=== PATIENT | male | born 1975 | race Two or more races ===

== ENCOUNTER → 2023-10-28 06:23 | Day surgery (SDC) | payer BC, SELFPAY | LOC: GI 06:23 | PROVIDERS: ATTENDING PHYSICIAN Internal Medicine Gastroenterology | DX: Z12.11 Encounter for screening for malignant neoplasm of colon (principal); K64.8 Other hemorrhoids; K22.70 Barrett's esophagus without dysplasia; K21.00 Gastro-esophageal reflux disease with esophagitis, without bleeding; K31.7 Polyp of stomach and duodenum; K31.89 Other diseases of stomach and duodenum; R12 Heartburn | CPT/HCPCS: 43239; G0121; 88305; 88342 ==

== ENCOUNTER → 2024-04-15 09:02 | Outpatient (REF) | payer BC, SELFPAY ==
[2024-04-15 10:25] LABS: Urine Albumin Negative (Neg - Trace); Urine Bilirubin Negative (Negative); Urine Character Clear (Clear); Urine Color Yellow; Urine Glucose Negative (Negative); Urine Ketone Negative (Negative); Urine Leukocyte Negative (Negative); Urine Nitrite Negative (Negative); Urine Occult Blood Negative (Negative); Urine Specific Gravity 1.005 (<1.030); Urine Urobilinogen Negative (Neg - 1+)
[2024-04-15 10:34] LABS: Erythrocyte Sed Rate 7 mm/hour (0-20)
[2024-04-15 12:06] LABS: ALT (SGPT) 25 U/L (0-50); AST (SGOT) 31 U/L (17-59); Albumin 5.1 g/dl (3.5-5.0); Alkaline Phosphatase 59 U/L (38-126); Blood Urea Nitrogen 14 mg/dl (9-20); Calcium 10.1 mg/dl (8.4-10.2); Carbon Dioxide 28 mmol/L (22-30); Chloride 100 mmol/L (98-107); Direct Bilirubin 0.3 mg/dl (0.0-0.4); Glucose 103 mg/dl (70-99); HDL Cholesterol 64 mg/dl; LDL Cholesterol, Calculated 161 mg/dl; Potassium 4.4 mmol/L (3.5-5.1); Sodium 136 mmol/L (135-145); Total Bilirubin 1.4 mg/dl (0.2-1.3); Total Cholesterol 239 mg/dl (50-199); Total Protein 7.9 g/dl (6.3-8.2); Triglyceride 70 mg/dl (10-149); Very Low Density Lipoprotein 14 mg/dl (0-30); eGFR > 60.00
[2024-04-15 12:07] LABS: Glycohemoglobin (HgbA1c) 5.5 % (4.0-5.6)
[2024-04-15 12:13] LABS: C-Reactive Protein < 5.00 mg/L (0.0-10.00)
[2024-04-15 12:46] LABS: PSA, Total - Screen 0.55 ng/ml (0.0-4.0); TSH 2.33 uIU/ml (0.47-4.68)
[2024-04-17 23:51] LABS: Insulin, Random 5 uIU/mL
[2024-04-18 05:32] LABS: % Free Testosterone 2.6 % (1.6-2.9); Free Testosterone 86 pg/mL (47-244); Sex Hormone Binding Globulin 14 nmol/L (17-56); Total Testosterone 333 ng/dL (300-890)
== END ==
LOC: REG 09:02
PROVIDERS: ATTENDING PHYSICIAN Internal Medicine Critical Care Medicine; FAMILY PHYSICIAN Internal Medicine
DX: I10 Essential (primary) hypertension (principal); R73.01 Impaired fasting glucose
CPT/HCPCS: 36415; 80048; 80061; 80076; 81003; 83036; 83525; 84270; 84402; 84403; 84443; 85652; 86140; G0103

== ENCOUNTER → 2025-02-25 10:47 | Outpatient (REF) | payer BC, SELFPAY ==
[2025-02-25 12:19] LABS: % Basophils 0.8 % (0-2); % Eosinophils 2.3 % (0-6); % Lymphocytes 43.9 % (20.5-51.1); % Monocytes 7.9 % (1.7-9.3); % Neutrophils 45.1 % (42.2-75.2); Absolute Eosinophils 0.1 10^3/uL (0-0.7); Absolute Lymphocytes 1.7 10^3/uL (1.2-3.4); Absolute Monocytes 0.3 10^3/uL (0.1-0.6); Absolute Neutrophils 1.8 10^3/uL (1.4-6.5); Hematocrit 42.6 % (39.0-52.0); Hemoglobin 14.8 g/dL (13.0-18.0); Mean Corp Hgb Conc. 34.7 g/dL (33.0-37.0); Mean Corpuscular Hgb 30.8 pg (27.0-31.0); Mean Corpuscular Volume 88.8 fL (80.0-94.0); Mean Platelet Volume 10.3 fL (7.4-10.4); Nucleated Red Blood Cells % 0 % (-); Platelet Count 255 10^3/uL (130-400); Red Cell Dist. Width 13.3 % (11.5-14.5); White Blood Cell Count 3.9 10^3/uL (4.8-10.8)
[2025-02-25 12:27] LABS: Urine Albumin Negative (Neg - Trace); Urine Bilirubin Negative (Negative); Urine Character Clear (Clear); Urine Color Yellow; Urine Glucose Negative (Negative); Urine Ketone Negative (Negative); Urine Leukocyte Negative (Negative); Urine Nitrite Negative (Negative); Urine Occult Blood Negative (Negative); Urine Specific Gravity 1.005 (<1.030); Urine Urobilinogen Negative (Neg - 1+)
[2025-02-25 12:38] LABS: Glycohemoglobin (HgbA1c) 5.6 % (4.0-5.6)
[2025-02-25 14:08] LABS: TSH 1.48 uIU/ml (0.47-4.68)
[2025-02-25 14:24] LABS: ALT (SGPT) 29 U/L (0-50); AST (SGOT) 32 U/L (17-59); Albumin 5.2 g/dl (3.5-5.0); Alkaline Phosphatase 61 U/L (38-126); Blood Urea Nitrogen 10 mg/dl (9-20); Calcium 9.6 mg/dl (8.4-10.2); Carbon Dioxide 24 mmol/L (22-30); Chloride 104 mmol/L (98-107); Glucose 100 mg/dl (70-99); HDL Cholesterol 58 mg/dl; Potassium 4.4 mmol/L (3.5-5.1); Sodium 139 mmol/L (135-145); Total Bilirubin 1.4 mg/dl (0.2-1.3); Total Cholesterol 228 mg/dl (50-199); Total Protein 8.4 g/dl (6.3-8.2); eGFR > 60.00
[2025-02-25 14:33] LABS: LDL Cholesterol, Calculated 144 mg/dl; Triglyceride 134 mg/dl (10-149); Very Low Density Lipoprotein 26 mg/dl (0-30)
[2025-02-27 04:35] LABS: Vitamin D 1,25 Dihydroxy 45.5 pg/mL (19.9-79.3)
[2025-02-27 04:46] LABS: Insulin, Random 4 uIU/mL
[2025-02-27 05:11] LABS: Lipoprotein a (Lp a) <6 mg/dL (<=29)
[2025-02-27 05:24] LABS: % Free Testosterone 2.6 % (1.6-2.9); Free Testosterone 57 pg/mL (47-244); Sex Hormone Binding Globulin 13 nmol/L (19-76); Total Testosterone 222 ng/dL (300-890)
[2025-02-27 05:38] LABS: Apolipoprotein B 105 mg/dL (66-133)
== END ==
LOC: REG 10:47
PROVIDERS: ATTENDING PHYSICIAN Internal Medicine Critical Care Medicine; FAMILY PHYSICIAN Internal Medicine
DX: R79.89 Other specified abnormal findings of blood chemistry (principal); E88.819 Insulin resistance, unspecified; R73.01 Impaired fasting glucose; I10 Essential (primary) hypertension; K21.9 Gastro-esophageal reflux disease without esophagitis; E78.2 Mixed hyperlipidemia; R68.82 Decreased libido
CPT/HCPCS: 36415; 80053; 80061; 81003; 82172; 82652; 83036; 83525; 83695; 84270; 84402; 84403; 84443; 85025